=== PATIENT | male | born 1980 | race Caucasian/White ===

== ENCOUNTER 2020-07-02 20:00 | Outpatient (CLI) | payer OTHER, SELFPAY | END 2020-07-02 20:01 | disposition home or self-care (01) | LOC: SLEEP 07-03 11:30 | PROVIDERS: Visit Provider Nurse Practitioner Family | DX: G47.10 Hypersomnia, unspecified (principal); G47.33 Obstructive sleep apnea (adult) (pediatric) | CPT/HCPCS: 95810 ==

== ENCOUNTER 2025-08-06 15:17 | Outpatient (CLI) | payer BC, SELFPAY ==
[2025-08-06 16:16] LABS: Sperm Progressive Motility 0 % (31-34)
[2025-08-06 16:17] LABS: Sperm Immotility 100 % (50-60); Sperm Non-Progressive Motility 0 % (5-10)
== END 2025-08-06 15:18 | disposition home or self-care (01) ==
LOC: LAB 15:19
PROVIDERS: Visit Provider Urology
DX: Z30.09 Encounter for other general counseling and advice on contraception (principal)
CPT/HCPCS: 89310